=== PATIENT | male | born 1990 ===

== ENCOUNTER 2018-04-05 14:51 | Emergency (ER) | payer OTHER ==
[2018-04-05] MEDS ORDERED: Sodium Chloride 0.9% 1,000 ML IV STA (15:46)
[2018-04-05 15:55] VITALS: RESP 18; TEMP 98.2; BMI 36.5
--- NOTE | 2018-04-05 15:58 | ED PDOC ---
Arrival/HPI - General Chief Complaint: Male Genitourinary Time Seen by Provider: 04/05/18 15:07 Historian: Patient - History of Present Illness Narrative History of Present Illness (Text): 04/05/18 15:43 27 yo M with no PMHx presenting to the ED for acute onset hematuria that began earlier this AM. Per patient, he was urinating when he forcefully sneezed while holding his penis and felt a popping sensation near the base of his penis. He states he then began expressing bright red hematuria which has lessened with each subsequent urinary episode. Patient also endorses dysuria, no increased frequency or urgency. He is able to express scant josemanuel red blood from the meatus. No other acute complaints. No fevers/chills, chest pain, palpitations, sob, cough, abdominal pain, n/v/d/c. PMHx: denies PSHx: denies Allergies: NKDA Home medications: none Social Hx: denies alcohol, tobacco use. Smokes marijuana, denies other illicit drug use. Family Hx: DM, psoriasis--mother, [place]-grandfather, uncle Time/Duration: Prior to Arrival Symptom Onset: Sudden Symptom Course: Unchanged Quality: Burning Severity Level: Mild Activities at Onset: Light Past Medical History - Provider Review Nursing Documentation Reviewed: Yes - Infectious Disease Hx of Infectious Diseases: None - Cardiac Hx Cardiac Disorders: No - Pulmonary Hx Respiratory Disorders: No - Neurological Hx Neurological Disorder: No - HEENT Hx HEENT Disorder: No - Renal Hx Renal Disorder: No - Endocrine/Metabolic Hx Endocrine Disorders: No - Hematological/Oncological Hx Blood Disorders: No - Integumentary Hx Dermatological Disorder: No - Musculoskeletal/Rheumatological Hx Musculoskeletal Disorders: No - Gastrointestinal Hx Gastrointestinal Disorders: No - Genitourinary/Gynecological Hx Genitourinary Disorders: Yes Hx Urinary Tract Infection: Yes - Psychiatric Hx Psychophysiologic Disorder: No Hx Substance Use: No - Surgical History Other/Comment: Circumcision Family/Social History - Physician Review Nursing Documentation Reviewed: Yes Family/Social History: Unknown Family HX Smoking Status: Never Smoked Hx Alcohol Use: No Hx Substance Use: No Allergies/Home Meds Allergies/Adverse Reactions: Allergies No Known Allergies Allergy (Verified 04/05/18 15:27) Review of Systems - Review of Systems Constitutional: Normal Eyes: Normal ENT: Normal Respiratory: Normal Cardiovascular: Normal Gastrointestinal: Normal. absent: Abdominal Pain, Stool Changes, Constipation, Diarrhea, Nausea, Vomiting Genitourinary Male: Dysuria, Hematuria, Urinary Output Changes Musculoskeletal: Normal Skin: Normal Neurological: Normal Endocrine: Normal Hemo/Lymphatic: Normal Psychiatric: Normal Physical Exam Vital Signs Reviewed: Yes Vital Signs Temp Pulse Resp BP Pulse Ox 04/05/18 15:33 98.2 F 75 18 135/85 98 Temperature: Afebrile Blood Pressure: Normal Pulse: Regular Respiratory Rate: Normal Appearance: Positive for: Well-Appearing, Non-Toxic, Comfortable Pain Distress: None Mental Status: Positive for: Alert and Oriented X 3 - Systems Exam Head: Present: Atraumatic, Normocephalic Pupils: Present: PERRL Extroacular Muscles: Present: EOMI Conjunctiva: Present: Normal Pharnyx: Present: Normal Nose (External): Present: Atraumatic Neck: Present: Normal Range of Motion Respiratory/Chest: Present: Clear to Auscultation, Good Air Exchange. No: Respiratory Distress, Accessory Muscle Use, Wheezes, Rales, Rhonchi Cardiovascular: Present: Regular Rate and Rhythm, Normal S1, S2. No: Murmurs Abdomen: Present: Normal Bowel Sounds. No: Tenderness, Distention, Rebound, Guarding, Mass/Organomegaly Genitourinary Male: Present: Normal External Genitalia (scant josemanuel blood expressed from meatus ), Circumcised Penis. No: Penile Discharge, Testicle Tenderness, Penile Swelling, Masses, Erythema Upper Extremity: Present: Normal Inspection, Normal ROM, NORMAL PULSES, Capillary Refill < 2s Lower Extremity: Present: Normal Inspection, NORMAL PULSES, Normal ROM, Capillary Refill < 2 s Neurological: Present: CN II-XII Intact, Speech Normal Skin: Present: Warm, Dry, Normal Color Psychiatric: Present: Alert, Oriented x 3, Normal Insight, Normal Concentration Medical Decision Making ED Course and Treatment: 04/05/18 15:58 Impression: 27 yo M with no significant PMHx presenting with acute onset hematuria x 1day. Plan: --CBC, CMP --PT/INR --Lipase --CT abd/pelvis w/o contrast --UA --IVF --monitor and disposition Disposition/Present on Arrival - Present on Arrival Any Indicators Present on Arrival: No History of DVT/PE: No History of Uncontrolled Diabetes: No Urinary Catheter: No History of Decub. Ulcer: No History Surgical Site Infection Following: None - Disposition Have Diagnosis and Disposition been Completed?: Yes Diagnosis: Hematuria Disposition: HOME/ ROUTINE Disposition Time: 18:16 Patient Problems: Current Active Problems Problem Status Onset Hematuria Acute Condition: STABLE Discharge Instructions (ExitCare): Trichomoniasis, Blood in the Urine (Hem aturia) in Adults Additional Instructions: return to er with worsening symptoms or concerns. Prescriptions: metroNIDAZOLE [Flagyl] 500 mg PO BID #14 tab Referrals: Ken Grigsby MD [Staff Provider] - Follow up with primary Forms: [employer] ([place])
[2018-04-05 16:44] LABS: BASO # 0.01 K/mm3 (0.0-2.0); BASO % 0.1 % (0.0-3.0); EOS # 0.2 (0.0-0.7); EOS % 2.5 % (1.5-5.0); GRAN # 5.74 (1.4-6.5); GRAN % 62.7 % (50.0-68.0); HEMOGLOBIN 15.5 g/dL (14.0-18.0); LYMPH # 2.3 (1.2-3.4); LYMPH % 24.9 % (22.0-35.0); MEAN CORPUSCULAR HEMOGLOBIN 32.1 pg (25.0-35.0); MEAN CORPUSCULAR HGB CONC 34.5 g/dl (31.0-37.0); MEAN PLATELET VOLUME 11.3 fl (7.0-11.0); MONO # 0.9 (0.1-0.6); MONO % 9.8 % (1.0-6.0); RBC 4.83 10^6/uL (3.5-6.1); RED CELL DISTRIBUTION WIDTH 13.2 % (11.5-14.5); WHITE BLOOD COUNT 9.2 10^3/ul (4.5-11.0)
[2018-04-05 16:46] LABS: URINE APPEARANCE CLEAR (CLEAR); URINE BILIRUBIN NEGATIVE (NEGATIVE); URINE BLOOD LARGE (NEGATIVE); URINE COLOR YELLOW (YELLOW); URINE GLUCOSE (UA) NEGATIVE (NEGATIVE); URINE LEUKOCYTE ESTERASE TRACE Leu/uL (NEGATIVE); URINE PROTEIN NEGATIVE mg/dL (<30 mg/dL)
[2018-04-05 16:52] LABS: URINE RBC 15 - 20 /hpf (0-2)
[2018-04-05 16:54] LABS: INR 1.11; PARTIAL THROMBOPLASTIN TIME 36.9 Seconds (25.1-36.5); PROTHROMBIN TIME 12.7 SECONDS (9.4-12.5)
[2018-04-05 16:59] LABS: ALBUMIN 4.2 g/dL (3.0-4.8); ALT/SGPT 34 U/L (7-56); AST/SGOT 30 U/L (17-59); BLOOD UREA NITROGEN 13 mg/dL (7-21); CALCIUM 9.1 mg/dL (8.4-10.5); GFR NON-AFRICAN AMERICAN > 60; LIPASE 92 U/L (23-300)
[2018-04-05 17:19] VITALS: O2SAT 100
--- NOTE | 2018-04-05 18:00 | CT ---
Date of service: 04/05/2018 PROCEDURE: CT Abdomen and Pelvis with Oral contrast. HISTORY: Hematuria COMPARISON: No prior study available comparison TECHNIQUE: Contiguous axial images of the abdomen and pelvis without oral or intravenous contrast material.. Coronal and Sagittal reformats generated. Radiation dose: Total exam DLP = 1205.79 mGy-cm. This CT exam was performed using one or more of the following dose reduction techniques: Automated exposure control, adjustment of the mA and/or kV according to patient size, and/or use of iterative reconstruction technique. FINDINGS: LOWER THORAX: Unremarkable. LIVER: Liver is enlarged measuring over 22 cm in CC dimension. GALLBLADDER AND BILE DUCTS: Gallbladder physiologically distended. No evidence of intraluminal gallbladder calculi. PANCREAS: Unenhanced pancreas appears unremarkable without masses collections or calcifications.. SPLEEN: Spleen is also mildly prominent measuring over 13 cm in AP dimension. There appears to be a small splenule just anterior and adjacent to the main body of the spleen. ADRENALS: No adrenal lesions. KIDNEYS AND URETERS: Kidneys demonstrate relatively symmetric size. No evidence of nephrolithiasis or hydronephrosis. No obvious renal masses or collections. BLADDER: Urinary bladder is incompletely distended which in part accounts for thick-walled appearance. Muscular hypertrophy presumably contributes. Other intrinsic/invasive wall lesion not excluded. Correlation with urinalysis recommended to exclude cystitis/UTI. No intraluminal urinary bladder calculi. REPRODUCTIVE: Unremarkable. APPENDIX: Normal-appearing appendix with no adjacent inflammatory changes. BOWEL: Evaluation of the bowel is somewhat limited due to the lack of oral contrast material. The stomach is incompletely distended which presumably accounts for mild thick-walled appearance. Visualized loops of small bowel exhibit normal contour and caliber. No evidence of acute mechanical small bowel obstruction. Moderate amount of stool seen within the cecum at ascending and transverse and to a lesser degree descending colon suggesting mild fecal retention. PERITONEUM: Unremarkable. No fluid collection. No free air. Small fat containing umbilical hernia. Small fat containing bilateral inguinal hernias are present. LYMPH NODES: Unremarkable. No enlarged lymph nodes. VASCULATURE: Unremarkable. No aortic aneurysm. BONES: No fracture or destructive lesion. Osseous structures appear intact. There straightening of the normal lumbar lordosis which may be due to patient positioning gantry. Underlying element of muscle spasm may contribute. OTHER FINDINGS: None. IMPRESSION: Hepatomegaly. . Spleen appears borderline/mildly enlarged. Clinical correlation recommended. No evidence of nephrolithiasis or hydronephrosis. The bladder wall thickening in part due to incomplete distention and probably muscular hypertrophy however other intrinsic/invasive wall lesion not excluded. Correlation with urinalysis recommended to exclude UTI/cystitis.
[2018-04-05 18:16] VITALS: BP 123/70; PULSE 64
== END 2018-04-05 18:30 | disposition home or self-care (01) ==
LOC: ED 14:51
DX: R31.9 Hematuria, unspecified (principal)
CPT/HCPCS: 74176; 80053; 81001; 83690; 83735; 85025; 85610; 85730; 87086; 96360; 99284; J7030